=== PATIENT | male | born 1995 | race Caucasian/White ===

== ENCOUNTER 2017-03-30 13:01 | Emergency (ER) | payer OTHER ==
[2017-03-30] MEDS ORDERED: Ondansetron INJ* 2 MG/ML VIAL IV ONE (14:28)
[2017-03-30] MEDS ORDERED: NS 0.9% 1000 ML*IV.FLUID IV ONE (14:28)
[2017-03-30 15:31] LABS: ABS Basophils 0 10^3/ul (0-0.2); ABS Eosinophils 0 10^3/ul (0-0.6); ABS Lymphocytes 0.6 10^3/ul (1.0-4.8); ABS Monocytes 0.7 10^3/ul (0-0.8); ABS Neutrophils 14.2 10^3/ul (1.5-7.7); ABS Nucleated RBC 0 10^3/ul; Eosinophil % 0.2 % (0-6); Hematocrit 44 % (42-52); Hemoglobin 15.6 g/dl (14.0-18.0); Lymphocyte % 3.8 % (25-47); Mean Corpuscular HGB Conc 35 g/dl (31-36); Mean Corpuscular Hemoglobin 31 pg (27-31); Mean Corpuscular Volume 87 fL (80-94); Mean Platelet Volume 8 um3 (7.4-10.4); Nucleated Red Blood Cells % 0; Platelet Count 201 10^3/ul (150-450); Red Blood Count 5.08 10^6/ul (4.0-5.4); Red Cell Distribution Width 13 % (10.5-15); White Blood Count 15.6 10^3/ul (3.5-10.8)
--- NOTE | 2017-03-30 15:36 | RAD ---
INDICATION: Vomiting COMPARISON: None TECHNIQUE: A single view of the abdomen is submitted. FINDINGS: Bones: There are no acute bony findings. Soft tissues: The soft tissues appear normal. The psoas margins are sharp. Bowel gas pattern: Normal Calcifications: There are no abnormal calcifications. Other: None IMPRESSION: NO ACUTE DIAGNOSTIC FINDINGS
[2017-03-30 15:40] LABS: EGFR Non-African American 156.4 (>60)
[2017-03-30 16:03] LABS: INR 1.11 (0.77-1.02)
[2017-03-30] MEDS ORDERED: PROCHLORPERAZINE INJ 5 MG/ML 2 ML VIAL IV ONE (16:50)
[2017-03-30] MEDS ORDERED: Iohexol 300* (CONTRAST) 10 ML SDV IV ONE (17:08)
[2017-03-30] MEDS ORDERED: diPHENhydraMINE IV* 50 MG/ML 1 ml VIAL (BENADRYL) SLOW PUSH ONE (18:29)
--- NOTE | 2017-03-30 19:45 | RAD ---
CLINICAL HISTORY: Abdominal pain, leukocytosis, vomiting and diarrhea COMPARISON: Most recent CT examination is dated March 20, 2016 TECHNIQUE: Contrast enhanced CT examination of the abdomen and pelvis from the lung bases through the initial tuberosities. The patient received 91 mL Omnipaque 300 intravenously prior to imaging. FINDINGS: VISUALIZED LUNG BASES: The visualized lung bases are grossly clear. There is no pleural effusion. ABDOMEN AND PELVIS: The liver, spleen, pancreas and adrenal glands are grossly normal in appearance. The gallbladder is normal. The kidneys are normal in appearance without focal mass, calcification or signs of hydronephrosis. Evaluation of the gastrointestinal tract is limited in the absence of oral contrast. The largely fluid-filled small bowel measures up to 2.7 cm in diameter. There are air-fluid levels in the more proximal midline small bowel. The appendix is not discretely identified. There is no gross retroperitoneal or mesenteric lymphadenopathy. The pelvic viscera is normal in appearance. The abdominal aorta and iliac arteries are normal in course and diameter. There are no sinister bone lesions. IMPRESSION: 1. Evaluation of the gastrointestinal tract is limited without oral contrast. 2. The small bowel is top normal in dimension exhibiting air-fluid levels at the midline abdomen. 3. The appendix is not discretely identified.
[2017-03-30 20:07] LABS: Urine Appearance Clear; Urine Blood Negative (Negative); Urine Color Yellow; Urine Ketones Trace (Negative); Urine Protein Negative (Negative); Urine Urobilinogen Negative (Negative)
[2017-03-30] MEDS ORDERED: Potassium Chlor TAB* 20 MEQ TAB.ER PO ONE (20:31)
[2017-03-30 21:24] VITALS: BP 114/64
--- NOTE | 2017-04-02 16:02 | ED ---
Renae Camacho Gabriel, scribed for Link Terrazas MD on 03/30/17 at 1440 . Abdominal Pain/Male - HPI Summary HPI Summary: This patient is a 21 year old M presenting to [facility] accompanied by his mother with a chief complaint of ABD pain since this morning. The patient rates the pain 9/10 in severity. Patient reports chills, n/v/d. Patient denies cough and sore throat. Patient is unable to tolerant any PO intake. Patient states he ate something he knows irritates his stomach last night. He has had stomach issues for 2 years and was diagnosed with UC and Chrons. Patient contacted his scientific advisor this morning and she told him to come to the ED. - History of Current Complaint Chief Complaint: EDNauseaVomitDiarrh Stated Complaint: VOMITING Hx Obtained From: Patient, Family/[employer] Operator - mother Onset/Duration: Lasting Hours - this morning, Still Present Timing: Constant, Intermittent - vomiting Severity Initially: Severe Severity Currently: Severe Pain Intensity: 9 Pain Scale Used: 0-10 Numeric Location: Diffuse Radiates: No Associated Signs And Symptoms: Positive: Nausea, Vomiting, Diarrhea, Other - chills - Allergies/Home Medications Allergies/Adverse Reactions: Allergies Allergy/AdvReac Type Severity Reaction Status Date / Time No Known Allergies Allergy Verified 03/30/17 13:07 Home Medications: Home Medications Budesonide [Uceris] 9 mg PO DAILY 03/30/17 [History Confirmed 03/30/17] PMH/Surg Hx/FS Hx/Imm Hx Endocrine/Hematology History: Denies: Hx Diabetes, Hx Thyroid Disease Cardiovascular History: Denies: Hx Hypertension, Hx Pacemaker/ICD Respiratory History: Denies: Hx Asthma, Hx Chronic Obstructive Pulmonary Disease (COPD) GI History: Reports: Hx Crohn's Disease, Other GI Disorders - UC Denies: Hx Ulcer History: Denies: Hx Renal Disease Sensory History: Denies: Hx Hearing Aid Neurological History: Reports: Hx Migraine Psychiatric History: Denies: Hx Panic Disorder Infectious Disease History: Unable to Obtain/Confirm Infectious Disease History: Denies: Hx Clostridium Difficile, Hx Hepatitis, Hx Human Immunodeficiency Virus (HIV), Hx of Known/Suspected MRSA, Hx Shingles, Hx Tuberculosis, Hx Known/ Suspected VRE, Hx Known/Suspected VRSA, History Other Infectious Disease, Traveled Outside the [place] in Last 30 Days - Family History Known Family History: Positive: Other - mother and sister with migraines Negative: Diabetes, Renal Disease, Respiratory Disease, Seizure Disorder - Social History Lives: With Family Alcohol Use: None Substance Use Type: Reports: None Smoking Status (MU): Never Smoked Tobacco Review of Systems Positive: Chills. Negative: Fever Negative: Erythema Negative: Sore Throat Negative: Chest Pain Negative: Shortness Of Breath, Cough Positive: Abdominal Pain, Vomiting, Diarrhea, Nausea Negative: dysuria, hematuria Negative: Myalgia, Edema Negative: Rash Neurological: Negative - dizziness All Other Systems Reviewed And Are Negative: Yes Physical Exam - Summary Physical Exam Summary: Constitutional: Well-developed, mildly ill appearing, Alert. (-) Distressed, minimal dry heaving. Skin: Warm, Dry HENT: Normocephalic; Atraumatic Eyes: Conjunctiva normal Neck: Musculoskeletal ROM normal neck. (-) JVD, (-) Stridor, (-) Tracheal deviation Cardio: Rhythm regular, rate normal, Heart sounds normal; Intact distal pulses; The pedal pulses are 2+ and symmetric. Radial pulses are 2+ and symmetric. (-) Murmur Pulmonary/Chest wall: Effort normal. (-) Respiratory distress, (-) Wheezes, (-) Rales Abd: Soft, (-) Tenderness, (-) Distension, (-) Guarding, (-) Rebound Musculoskeletal: (-) Edema Lymph: (-) Cervical adenopathy Neuro: Alert, Oriented x3 Psych: Mood and affect Normal Triage Information Reviewed: Yes Vital Signs On Initial Exam: Initial Vitals Temp Pulse Resp BP Pulse Ox 98.6 F 108 16 141/65 100 03/30/17 13:05 03/30/17 13:05 03/30/17 13:05 03/30/17 13:05 03/30/17 13:05 Vital Signs Reviewed: Yes - Dwaine Coma Scale Coma Scale Total: 15 Diagnostics - Vital Signs Vital Signs Temp Pulse Resp BP Pulse Ox 03/30/17 13:05 98.6 F 108 16 141/65 100 - Laboratory Result Diagrams: 03/30/17 15:04 03/30/17 15:04 Lab Statement: Any lab studies that have been ordered have been reviewed, and results considered in the medical decision making process. - Radiology ABD xray Radiology Interpretation Completed By: Radiologist - NO ACUTE DIAGNOSTIC FINDINGS ED physician has reviewed this radiology report. - CT CT ABD/Pelvis CT Interpretation Completed By: Radiologist - 1. Evaluation of the gastrointestinal tract is limited without oral contrast. 2. The small bowel is top normal in dimension exhibiting air-fluid levels at the midline abdomen. 3. The appendix is not discretely identified. ED physician has reviewed this radiology report. Re-Evaluation - Re-Evaluation First Eval Re-Evaluation Time: 18:31 Change: Unchanged Comment: Patient had an akathisia reaction to Reglan, he feels anxious and like he would like to leave. Counseled him on the importance of oral contrast but he is afraid he may vomit it up like he has in the past. Second Eval Re-Evaluation Time: 20:29 Change: Improved Comment: No abdominal tenderness on re exam. We discussed that gastroparesis and how marijuana abuse can exacerbate gastroparesis. We suggested admission but him and his family declined. We will try a PO challenge. Abdominal Pain Fem Course/Dx - Course Assessment/Plan: This patient is a 21 year old M presenting to [facility] accompanied by his mother with a chief complaint of ABD pain since this morning. The patient rates the pain 9/10 in severity. Patient reports chills, n/ v/d. Patient denies cough and sore throat. Patient is unable to tolerant any PO intake. Patient states he ate something he knows irritates his stomach last night. He has had stomach issues for 2 years and was diagnosed with UC and Chrons. Patient contacted his scientific advisor this morning and she told him to come to the ED. An EKG reveals. ABD Xray reveals, per radiologist, NO ACUTE DIAGNOSTIC FINDINGS. CT abd/pelvis reveals, per radiologist, 1. Evaluation of the gastrointestinal tract is limited without oral contrast. 2. The small bowel is top normal in dimension exhibiting air-fluid levels at the midline. abdomen. 3. The appendix is not discretely identified. I referred to colon biopsy which showed normal colon and normal ileum. He has had multiple negative ABD MRIs, HIDAs, and CTs in the past. Test results with no significant abnormalities. In the ED course the patient was given Benadryl, Zofran, potassium chloride, Compazine, and IV fluids. We discussed patient care with YONATAN Faust ([place]) and she stated she will follow up with him in her office next week as needed. Additionally she states he has had multiple negative GI work ups from multiple doctors. She suspects substance abuse and suggests he be tested. Patient will be discharged with prescription for Reglan and follow up from Dr. Bernal. The patient is agreeable with this plan. - Diagnoses Provider Diagnoses: Vomiting, Gastroparesis, Dehydration - Provider Notifications Discussed Care Of Patient With: Megan Painter Time Discussed With Above Provider: 15:22 Instructed by Provider To: Other - We discussed patient care with YONATAN Faust ( [place]) and she stated she will follow up with him in her office next week as needed. Additionally she states he has had multiple negative GI work ups from multiple doctors. She suspects substance abuse and suggests he be tested. Discharge - Discharge Plan Condition: Stable Disposition: HOME Prescriptions: Metoclopramide TAB* [Reglan TAB*] 10 mg PO Q8H #12 tab Patient Education Materials: Metoclopramide (By mouth), Gastroparesis (ED) Referrals: Shan Ridley [Primary Care Provider] - Megan Painter MD [Medical Doctor] - 5 Days Additional Instructions: RETURN TO THE EMERGENCY DEPARTMENT FOR CHANGING OR WORSENING SYMPTOMS. The documentation as recorded by the Renae moya Gabriel accurately reflects the service I personally performed and the decisions made by me, Link Terrazas MD.
== END 2017-03-30 21:25 | disposition home or self-care (01) ==
LOC: ED 13:01
DX: K31.84 Gastroparesis (principal); E86.0 Dehydration; R11.2 Nausea with vomiting, unspecified; R19.7 Diarrhea, unspecified; R10.9 Unspecified abdominal pain
CPT/HCPCS: 36415; 74018; 74177; 80053; 80307; 81003; 83605; 84311; 84484; 85025; 85610; 85652; 85730; 86140; 87040; 87502; 96374; 99283; A9270-GY; J0780; J1200; J2405; Q9967

== ENCOUNTER 2017-08-31 10:55 | Emergency (ER) | payer OTHER ==
[2017-08-31 11:29] VITALS: BP 129/89
--- NOTE | 2017-08-31 11:48 | UC ---
Headache HPI - HPI Summary HPI Summary: Patient states that he awoke from sleep this morning with a really bad headache. He describes his pressure to the front of his head. He states that he gets these headaches frequently. He admits to being diagnosed with migraines. He denies any associated fever or injury. He admits to family medical history of migraines and is currently sensitive to light and noise. He complains of nausea as well swelling around his eyes. Denies any change in his vision, speech and any focal numbness or weakness. Triage note states worst headache ever; however, patient admits to myself to having this same headache in the past. He did have in and asked be yesterday. He's had that procedure more than once before. And has had no issue with headache after. That procedure did not involve a lumbar puncture. - History Of Current Complaint Chief Complaint: UCHeadache Stated Complaint: HEADACHE, BILAT EYE COMPLAINT Time Seen by Provider: 08/31/17 11:40 Hx Obtained From: Patient Pain Intensity: 8 Timing: Constant Location of Headache: Frontal Aggravating Factor(s): Bright Lights, Other - noise Allevating Factor(s): Nothing Associated Signs And Symptoms: Positive: Nausea. Negative: Fever, Neck Pain, Neck Stiffness, Decreased LOC, Visual Changes - Allergies/Home Medications Allergies/Adverse Reactions: Allergies Allergy/AdvReac Type Severity Reaction Status Date / Time No Known Allergies Allergy Verified 05/19/17 10:17 Home Medications: Home Medications diphenhydrAMINE HCl [Benadryl Allergy] 25 mg PO DAILY 08/31/17 [History Confirmed 08/31/17] PMH/Surg Hx/FS Hx/Imm Hx - Additional Past Medical History Additional PMH: Extensive GI issues-?crohns, gastritis Neurological History: Migraine - Surgical History Surgical History: Yes Surgery Procedure, Year, and Place: UPPER GI-2018 - Family History Known Family History: Positive: Other - mother and sister with migraines Negative: Diabetes, Renal Disease, Respiratory Disease, Seizure Disorder - Social History Lives: With Family Alcohol Use: None Substance Use Type: None Smoking Status (MU): Never Smoked Tobacco - Immunization History Most Recent Influenza Vaccination: Not the 2015/2015 Season Vaccination Up to Date: Yes Review of Systems Constitutional: Other - puffy eyes Skin: Negative Eyes: Photophobia ENT: Negative Respiratory: Negative Cardiovascular: Negative Gastrointestinal: Nausea Genitourinary: Negative Motor: Negative Neurovascular: Negative Musculoskeletal: Negative Neurological: Headache Psychological: Negative Is Patient Immunocompromised?: No All Other Systems Reviewed And Are Negative: Yes Physical Exam Triage Information Reviewed: Yes Appearance: Well-Appearing Vital Signs: Initial Vital Signs Temp 99.4 F 08/31/17 11:24 Pulse 77 08/31/17 11:24 Resp 17 08/31/17 11:24 BP 129/89 08/31/17 11:24 Pulse Ox 100 08/31/17 11:24 Vital Signs Reviewed: Yes Eyes: Positive: Conjunctiva Clear, Other: - PERRL, EOMI ENT: Positive: Pharynx normal, TMs normal. Negative: Nasal congestion, Nasal drainage Neck: Positive: Supple, Nontender, No Lymphadenopathy. Negative: Nuchal Rigidity Respiratory: Positive: Lungs clear, Normal breath sounds Cardiovascular: Positive: RRR, No Murmur Abdomen Description: Positive: Nontender, No Organomegaly, Soft. Negative: Distended, Guarding Bowel Sounds: Positive: Present Musculoskeletal: Positive: ROM Intact Neurological: Positive: Other: - Patient is alert and oriented to person place and time. Cranial nerves II through XII are grossly intact. Is 5 out of 5 strength and 2+ reflexes 4. He is normal steady gait. Psychological: Positive: Normal Response To Family, Age Appropriate Behavior Skin Exam: Normal Re-Evaluation - Re-Evaluation Second Eval Re-Evaluation Time: 13:20 Change: Improved - pt notes that CORDOVA has resolved. his girlfriend confirms for second time that she will be driving home Headache Course/Dx - Course Course Of Treatment: PT DECLINED ZOFRAN DUE TO ? PRIOR SIDE EFFECT. REVIEW OF THE 2016 CORDOVA VISIT HE CITED SHOWED THE MEDICATION HE REACTED TO WAS COMPAZINE AND NOT ZOFRAN PLUS PT TAKES ODT ZOFRAN THUS NOW AGREES TO THE DRUG. PT HAS HX OF SAME CORDOVA. HE HAS A HX OF MIGRAINES. NEURO EXAM IS REASSURING. NO CONCERN FOR INTRACRANIAL PATHOLOGY. I DID NOT APPRECIATED SWELLING AROUND EYES BUT NO CONCERN FOR MYXEDEMA, NEPHROPATHY OR ALLERGIC REACTION. CORDOVA RESOLVED WITH TX. - Differential Dx/Diagnosis Provider Diagnoses: migraine headache Discharge - Sign-Out/Discharge Documenting (check all that apply): Discharge/Admit/Transfer - Discharge Plan Condition: Improved Disposition: HOME Patient Education Materials: Migraine Headache (ED) Referrals: Hailee Vogt MD [Primary Care Provider] - As Soon As Possible - Billing Disposition and Condition Condition: IMPROVED Disposition: Home
[2017-08-31] MEDS ORDERED: Ketorolac INJ* 30 MG/ML 1 ML VIAL IV PUSH ONE (11:53)
[2017-08-31] MEDS ORDERED: LORazepam TAB(*) 0.5 MG PO ONE (11:54)
[2017-08-31] MEDS ORDERED: Ondansetron INJ* 2 MG/ML VIAL IV ONE ×2 (11:54→12:53)
[2017-08-31] MEDS ORDERED: LORazepam TAB(*) 1 MG ONE (12:06)
[2017-08-31] MEDS ORDERED: LORazepam TAB(*) 1 MG PO ONE (12:14)
== END 2017-08-31 13:27 | disposition home or self-care (01) ==
LOC: UCCORT 10:55
DX: G43.909 Migraine, unspecified, not intractable, without status migrainosus (principal)
CPT/HCPCS: 96374; 96376; 99212; A9270-GY; G0463; J1885; J2405